=== PATIENT | male | born 1995 | race Caucasian/White ===

== ENCOUNTER 2017-06-05 21:41 | Emergency (ER) | payer MEDICAID ==
[2017-06-05 22:03] VITALS: BP 138/70; PULSE 98; RESP 18; TEMP 98.4
--- NOTE | 2017-06-05 22:25 | ED ---
General Adult HPI - General Chief complaint: ENT Stated complaint: Ear Pain Time Seen by Provider: 06/05/17 22:04 Source: patient, RN notes reviewed Mode of arrival: ambulatory Limitations: no limitations - History of Present Illness Initial comments: Patient 22-year-old male who presents emergency room today with a chief complaint of right-sided ear pain that began a few days ago. This mid to a history of a right ear infection and states he saw ENT was advised that he would need a surgery. She has never follow-up. Patient states his symptoms started just a few days ago and has had drainage coming from the right ear for some pain. Denies any other complaints or symptoms. Patient denies any recent fever, chills, shortness of breath, chest pain, back pain, abdominal pain, nausea or vomiting, numbness or tingling, dysuria or hematuria, constipation or diarrhea, headaches or visual changes, or any other complaints. - Related Data Home Medications Medication Instructions Recorded Confirmed No Known Home Medications [No 01/03/16 01/03/16 Known Home Medications] Previous Rx's Medication Instructions Recorded Amoxicillin 500 mg PO Q8H 10 Days 06/05/17 Ofloxacin 0.3% Otic Soln [Floxin 10 drops RIGHT EAR BID 7 Days 06/05/17 0.3% Otic Soln] Allergies Allergy/AdvReac Type Severity Reaction Status Date / Time No Known Allergies Allergy Verified 06/05/17 21:52 Review of Systems ROS Statement: Those systems with pertinent positive or pertinent negative responses have been documented in the HPI. ROS Other: All systems not noted in ROS Statement are negative. Past Medical History Past Medical History: No Reported History History of Any Multi-Drug Resistant Organisms: None Reported Additional Past Surgical History / Comment(s): tubes in ears Past Psychological History: No Psychological Hx Reported Smoking Status: Current every day smoker Past Alcohol Use History: Occasional Past Drug Use History: None Reported General Exam - General Exam Comments Initial Comments: General: The patient is awake and alert, in no distress, and does not appear acutely ill. Eye: Pupils are equal, round and reactive to light, extra-ocular movements are intact. No nystagmus. There is normal conjunctiva bilaterally. No signs of icterus. Ears, nose, mouth and throat: There are moist mucous membranes and no oral lesions. Patient does have clear and brown drainage coming from the right ear canal. Landmarks are unable to be seen on the right. TM is left is clear. Neck: The neck is supple, there is no tenderness or JVD. Cardiovascular: There is a regular rate and rhythm. No murmur, rub or gallop is appreciated. Respiratory: Lungs are clear to auscultation, respirations are non-labored, breath sounds are equal. No wheezes, stridor, rales, or rhonchi. Musculoskeletal: Normal ROM, no tenderness. Strength 5/5. Sensation intact. Pulses equal bilaterally 2+. Neurological: A&O x 3. CN II-XII intact, There are no obvious motor or sensory deficits. Coordination appears grossly intact. Speech is normal. Skin: Skin is warm and dry and no rashes or lesions are noted. Psychiatric: Cooperative, appropriate mood & affect, normal judgment. Limitations: no limitations Course Vital Signs 06/05/17 21:54 Temperature 98.4 F Pulse Rate 98 Respiratory 18 Rate Blood Pressure 138/70 O2 Sat by Pulse 99 Oximetry Medical Decision Making - Medical Decision Making CT from 2013 reviewed and does show right-sided otitis media with a right-sided mastoiditis. Disposition Clinical Impression: Otitis externa Disposition: HOME SELF-CARE Condition: Good Instructions: Otitis Externa (ED) Additional Instructions: Please follow-up with the ENT doctor over the next 2 days and use antibiotics as prescribed. Please return to emergency room for any other concerns. Prescriptions: Amoxicillin 500 mg PO Q8H 10 Days Ofloxacin 0.3% Otic Soln [Floxin 0.3% Otic Soln] 10 drops RIGHT EAR BID 7 Days Referrals: Isauro Easley DO [Primary Care Provider] - 1-2 days Eric Murphy DO [Doctor of Osteopathic Medicine] - 1-2 days Time of Disposition: 22:24
== END 2017-06-05 22:36 | disposition home or self-care (01) ==
LOC: EC 21:41
DX: H60.91 Unspecified otitis externa, right ear (principal); H66.91 Otitis media, unspecified, right ear; H70.91 Unspecified mastoiditis, right ear; F17.200 Nicotine dependence, unspecified, uncomplicated
CPT/HCPCS: 99282

== ENCOUNTER 2017-06-25 22:55 | Emergency (ER) | payer MEDICAID ==
[2017-06-25 23:01] VITALS: TEMP 97.5
[2017-06-26] MEDS ORDERED: TETRACAINE 0.5% OPHTH (PF) DROPS 4 ML BTL RIGHT EYE STA (00:04)
[2017-06-26] MEDS ORDERED: FLUORESCEIN STRIPS 1 MG STRIP RIGHT EYE ONE (00:04)
--- NOTE | 2017-06-26 00:25 | ED ---
ENT HPI - General Chief complaint: ENT Stated complaint: FB L eye Time Seen by Provider: 06/26/17 00:02 Source: patient Mode of arrival: ambulatory Limitations: no limitations - History of Present Illness Initial comments: Pt presents with pain in left eye. 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 Patient states he's had pain and foreign body sensation in that left eye since the event. Denies vision changes. Patient denies any other injuries or symptoms. Patient states he's had foreign bodies in the eye to previous occasions that had to be removed. Patient states he has an restorative rehab aide that he is seen multiple times in the past. - Related Data Previous Rx's Medication Instructions Recorded Amoxicillin 500 mg PO Q8H 10 Days 06/05/17 Ofloxacin 0.3% Otic Soln [Floxin 10 drops RIGHT EAR BID 7 Days 06/05/17 0.3% Otic Soln] Polymyxin B-Trimethoprim Ophth 1 drops LEFT EYE Q4H #1 bottle 06/26/17 [Polytrim Opthalmic] Allergies Allergy/AdvReac Type Severity Reaction Status Date / Time No Known Allergies Allergy Verified 06/25/17 23:01 Review of Systems ROS Statement: Those systems with pertinent positive or pertinent negative responses have been documented in the HPI. ROS Other: All systems not noted in ROS Statement are negative. Constitutional: Denies: fever, chills Eyes: Reports: eye pain. Denies: eye discharge, vision change ENT: Denies: ear pain, congestion Respiratory: Denies: cough Cardiovascular: Denies: chest pain Endocrine: Denies: fatigue Gastrointestinal: Denies: nausea, vomiting Past Medical History Past Medical History: No Reported History History of Any Multi-Drug Resistant Organisms: None Reported Additional Past Surgical History / Comment(s): tubes in ears Past Psychological History: No Psychological Hx Reported Smoking Status: Current every day smoker Past Alcohol Use History: Occasional Past Drug Use History: None Reported General Exam - General Exam Comments Initial Comments: sitting up on side of bed, no acute distress. Conversing normally calm, pleasant, making jokes, smiling. Well appearing. Limitations: no limitations General appearance: alert, in no apparent distress Head exam: Present: atraumatic, normocephalic Eye exam: Present: PERRL, EOMI, other (sclera white, conjunctiva clear. Left eyelids everted, no foreign body visualized under microscope. Increased fluorescein uptake in linear fashion along lower left eye below the iris. No ulcer seen. Demond test negative. No foreign bodies visualized. Pupils equal round and reactive to light bilaterally. Vision grossly intact in both eyes.). Absent: scleral icterus, conjunctival injection, periorbital swelling, periorbital tenderness Pupils: Present: normal accommodation ENT exam: Present: normal exam, normal external ear exam Respiratory exam: Present: normal lung sounds bilaterally. Absent: respiratory distress Cardiovascular Exam: Present: regular rate, normal rhythm GI/Abdominal exam: Absent: distended Extremities exam: Present: normal inspection Neurological exam: Present: alert, oriented X3 Psychiatric exam: Present: normal affect, normal mood Skin exam: Present: warm, dry, intact, normal color. Absent: rash, erythema, abrasion Course Vital Signs 06/25/17 06/26/17 22:57 00:41 Temperature 97.5 F L Pulse Rate 88 76 Respiratory 16 18 Rate Blood Pressure 142/75 153/76 O2 Sat by Pulse 99 97 Oximetry Medical Decision Making - Medical Decision Making no foreign bodies visualized on exam. Fluoriceine uptake consistent with corneal abrasion. Prescription for antibiotic eyedrops given. Patient states he has an restorative rehab aide, agrees to call them in the morning to schedule follow -up within 2 days. Return to ED if new or worsening symptoms. Patient understands and agrees. Disposition Clinical Impression: Corneal abrasion Disposition: HOME SELF-CARE Instructions: Corneal Abrasion (ED) Additional Instructions: make appointment with your restorative rehab aide in 1-2 days. Prescriptions: Polymyxin B-Trimethoprim Ophth [Polytrim Opthalmic] 1 drops LEFT EYE Q4H #1 bottle Referrals: Isauro Easley DO [Primary Care Provider] - 1-2 days
[2017-06-26 00:42] VITALS: BP 153/76; PULSE 76; RESP 18
== END 2017-06-26 00:42 | disposition home or self-care (01) ==
LOC: EC 22:55
DX: S05.02XA Injury of conjunctiva and corneal abrasion without foreign body, left eye, initial encounter (principal); W45.8XXA Other foreign body or object entering through skin, initial encounter; F17.200 Nicotine dependence, unspecified, uncomplicated; Y93.89 Activity, other specified
CPT/HCPCS: 99283

== ENCOUNTER 2018-07-23 03:07 | Emergency (ER) | payer MEDICAID ==
[2018-07-23 03:16] VITALS: BP 157/100; PULSE 78; RESP 18; TEMP 98.1
--- NOTE | 2018-07-23 03:55 | ED ---
ENT HPI - General Chief complaint: ENT Stated complaint: ear pain Time Seen by Provider: 07/23/18 03:18 Source: patient, RN notes reviewed, old records reviewed Mode of arrival: ambulatory Limitations: no limitations - History of Present Illness Initial comments: Patient is a 23 year old male with a hsitory of chronic R ear infections, and chronic mastoiditis. Patient reports that he does not follow up with ENT, due to needing a surgery that he has put off since 2013. Patient reports increased drainage to ear, after using q tip. Patient reports that he has perforated TM for years, and cannot use ear drops. Patient states that he has no fevers, chillls, denies headache. He left work early due to ear pain. - Related Data Home Medications Medication Instructions Recorded Confirmed Naproxen Sodium [Aleve] 1,100 mg PO ONCE 10/11/17 10/11/17 Previous Rx's Medication Instructions Recorded Amoxic-Pot Clav 875-125Mg 1 tab PO Q12HR #20 tablet 07/23/18 [Augmentin 875-125] Allergies Allergy/AdvReac Type Severity Reaction Status Date / Time No Known Allergies Allergy Verified 07/23/18 03:15 Review of Systems ROS Statement: Those systems with pertinent positive or pertinent negative responses have been documented in the HPI. ROS Other: All systems not noted in ROS Statement are negative. Past Medical History Past Medical History: No Reported History History of Any Multi-Drug Resistant Organisms: None Reported Additional Past Surgical History / Comment(s): tubes in ears Past Psychological History: Depression Smoking Status: Current every day smoker Past Alcohol Use History: None Reported Past Drug Use History: None Reported General Exam - General Exam Comments Initial Comments: This is a 23 year old male, no acute distress. Limitations: no limitations General appearance: alert, in no apparent distress Head exam: Present: atraumatic, normocephalic, normal inspection Eye exam: Present: normal appearance, PERRL, EOMI. Absent: scleral icterus, conjunctival injection, periorbital swelling ENT exam: Present: normal exam, mucous membranes moist. Absent: TM's normal bilaterally (R TM erythematous, with slight drainage. No bloody drainage. Patient is tender preauriclar area. ) Neck exam: Present: normal inspection. Absent: tenderness, meningismus, lymphadenopathy Respiratory exam: Present: normal lung sounds bilaterally. Absent: respiratory distress, wheezes, rales, rhonchi, stridor Cardiovascular Exam: Present: regular rate, normal rhythm, normal heart sounds. Absent: systolic murmur, diastolic murmur, rubs, gallop, clicks Extremities exam: Present: normal inspection, full ROM, normal capillary refill. Absent: tenderness, pedal edema, joint swelling, calf tenderness Psychiatric exam: Present: normal affect, normal mood Skin exam: Present: warm, dry, intact, normal color. Absent: rash Course Vital Signs 07/23/18 03:12 Temperature 98.1 F Pulse Rate 78 Respiratory 18 Rate Blood Pressure 157/100 O2 Sat by Pulse 99 Oximetry Medical Decision Making - Medical Decision Making 23 year old male with chronic R ear infections, presents today with drainage after using q tip. Patient has erythematous bulging TM. Slight drainage noted. No fevers, no meningeal signs. Discussed placing patient on Amoxicllin. Discussed he needs to follow up with ENT. Discussed return parameters. Disposition Clinical Impression: Recurrent otitis media Disposition: HOME SELF-CARE Condition: Good Instructions: Earache (ED) Additional Instructions: Follow-up with primary care physician. Return to emergency department if any alarming signs or symptoms occur. Prescriptions: Amoxic-Pot Clav 875-125Mg [Augmentin 875-125] 1 tab PO Q12HR #20 tablet Is patient prescribed a controlled substance at d/c from ED?: No Referrals: Isauro Easley DO [Primary Care Provider] - 1-2 days Sushil Emerson MD [STAFF PHYSICIAN] - 1-2 days Time of Disposition: 03:54
== END 2018-07-23 04:20 | disposition home or self-care (01) ==
LOC: EC 03:07
DX: H66.91 Otitis media, unspecified, right ear (principal); F17.200 Nicotine dependence, unspecified, uncomplicated
CPT/HCPCS: 99283

== ENCOUNTER 2022-03-18 01:01 | Emergency (ER) | payer BC, MEDICAID ==
[2022-03-18 01:15] VITALS: BP 138/84; PULSE 70; RESP 16; TEMP 98.2
--- NOTE | 2022-03-18 01:22 | ED ---
Wound/Laceration HPI - General Chief Complaint: Wound/Laceration Stated Complaint: Finger injury Time Seen by Provider: 03/18/22 01:20 Source: patient, RN notes reviewed Mode of arrival: ambulatory Limitations: no limitations - History of Present Illness Initial Comments: This is a pleasant, 26-year-old [id number] male who presents to the emergency department after sustaining a laceration to his left index finger when he was working with a piece of metal at home. This happened about 3 PM. Patient states she shaved off a portion of his skin and has been bleeding off and on since. Patient unsure of his last tetanus. Patient's was concerned because it had bled through the initial bandage. Applied. Patient denying any other injuries. No immunosuppression. No health problems. No distal paresthesias. No headache, no fever or chills, no changes in vision or hearing, no sore throat or difficulty with speech, no neck pain, no chest pain or shortness of breath, no abdominal pain, no nausea or vomiting, no changes in urination or bowel movements, no numbness or tingling, no extremity pain, no skin rashes or lesions. Onset/Timin -: hour(s) - Related Data Home Medications Medication Instructions Recorded Confirmed Naproxen Sodium [Aleve] 1,100 mg PO ONCE 10/11/17 10/11/17 Previous Rx's Medication Instructions Recorded Amoxic-Pot Clav 875-125Mg 1 tab PO Q12HR #20 tablet 07/23/18 [Augmentin 875-125] Allergies Allergy/AdvReac Type Severity Reaction Status Date / Time No Known Allergies Allergy Verified 07/23/18 03:15 Review of Systems ROS Statement: Those systems with pertinent positive or pertinent negative responses have been documented in the HPI. ROS Other: All systems not noted in ROS Statement are negative. Past Medical History Past Medical History: No Reported History History of Any Multi-Drug Resistant Organisms: None Reported Additional Past Surgical History / Comment(s): tubes in ears Past Psychological History: Depression Past Alcohol Use History: None Reported Past Drug Use History: None Reported General Exam - General Exam Comments Initial Comments: Nontoxic appearing male in no acute distress. Limitations: no limitations Head exam: Present: atraumatic, normocephalic, normal inspection Eye exam: Present: normal appearance, EOMI Neck exam: Present: normal inspection Respiratory exam: Absent: respiratory distress Cardiovascular Exam: Present: regular rate, normal rhythm, normal heart sounds. Absent: systolic murmur, diastolic murmur, rubs, gallop, clicks Extremities exam: Present: full ROM, normal capillary refill, other (Patient has a superficial skin avulsion to the distal aspect of the left index finger. No contamination. No foreign body. No nail plate involvement.). Absent: tenderness Left Neuro motor exam: Present: wrist extension intact, thumb opposition intact, thumb IP flexion intact, thumb adduction intact, fingers 2-5 abduction intact Vascular: Present: vascular compromise, normal capillary refill. Absent: Pallo, pulse deficit radial art, pulse deficit ulnar art Back exam: Present: normal inspection Neurological exam: Present: alert, oriented X3, CN II-XII intact. Absent: motor sensory deficit Psychiatric exam: Present: normal affect, normal mood Skin exam: Present: warm, dry, normal color. Absent: rash, cyanosis, diaphoretic Course Vital Signs 03/18/22 01:12 Temperature 98.2 F Pulse Rate 70 Respiratory 16 Rate Blood Pressure 138/84 O2 Sat by Pulse 98 Oximetry Medical Decision Making - Medical Decision Making Superficial skin avulsion, left index finger. Patient counseled on signs and symptoms of infection. Counseled on wound care. Patient was told to return to the ER for any signs or symptoms worsen. Told to return immediately if any other problems arise. All questions answered. T reatment plan discussed. Patient in agreement Every effort has been made to ensure accuracy of this dictation. However, due to the limitations of electronic medical records and dictation devices, errors in charting still occur. Computer Help [employer] Specialist Dr. Carrillo Disposition Clinical Impression: Skin avulsion, Tetanus toxoid inoculation Disposition: HOME SELF-CARE Condition: Good Instructions (If sedation given, give patient instructions): Skin Avulsion (ED) Additional Instructions: Follow-up with your regular physician as directed. Return to the ER immediately if any symptoms worsen, new symptoms arise, or any other problems develop. Is patient prescribed a controlled substance at d/c from ED?: No Referrals: None,Stated [Primary Care Provider] - 1-2 days Time of Disposition: 02:07
[2022-03-18] MEDS ORDERED: GELATIN SPONGE,ABSORB (SMALL) 1 EACH SPONGE TOPICAL STA (01:35)
[2022-03-18] MEDS ORDERED: DIPH,PERTUS(ACELL)TETVAC-LF 0.5 ML VIAL IM ONE (01:39)
== END 2022-03-18 02:15 | disposition home or self-care (01) ==
LOC: EC 01:01
DX: S61.201A Unspecified open wound of left index finger without damage to nail, initial encounter (principal); Z23 Encounter for immunization; W45.8XXA Other foreign body or object entering through skin, initial encounter
CPT/HCPCS: 90715

== ENCOUNTER 2024-05-13 17:53 | Emergency (ER) | payer BC, OTHER ==
[2024-05-13 18:05] VITALS: RESP 18
--- NOTE | 2024-05-13 18:21 | ED ---
Abdominal Pain HPI - General Source: patient Mode of arrival: ambulatory Limitations: no limitations <Bety Davenport - Last Filed: 05/13/24 18:20> - General Source: patient, RN notes reviewed Mode of arrival: ambulatory Limitations: no limitations - History of Present Illness MD Complaint: abdominal pain <Kelsea Mejia - Last Filed: 05/13/24 22:54> - General Chief Complaint: Abdominal Pain Stated Complaint: [facility]-Groin pain Time Seen by Provider: 05/13/24 18:20 - History of Present Illness Initial Comments: 29-year-old male with chief complaint of left groin pain. When he was at work he was lifting something heavy and then felt a pop in the left groin. Pain is radiating into the abdomen and down the leg. No vomiting (Bety Davenport) This is a 29-year-old male who presents to the emergency department for left groin pain. He was lifting a heavy steel beam at work and he felt something pop in the left groin region. He has pain now radiating down the leg and up into the abdomen. Denies any nausea or vomiting. Believes that he may have strained something. Denies any history of similar problems in the past. He has not noticed any bulges in this area. (Kelsea Mejia) - Related Data Home Medications Medication Instructions Recorded Confirmed Naproxen Sodium [Aleve] 1,100 mg PO ONCE 10/11/17 10/11/17 Previous Rx's Medication Instructions Recorded Amoxic-Pot Clav 875-125Mg 1 tab PO Q12HR #20 tablet 07/23/18 [Augmentin 875-125] Allergies Allergy/AdvReac Type Severity Reaction Status Date / Time No Known Allergies Allergy Verified 05/13/24 18:05 Review of Systems ROS Other: All systems not noted in ROS Statement are negative. <Bety Davenport - Last Filed: 05/13/24 18:20> ROS Other: All systems not noted in ROS Statement are negative. <Kelsea Mejia - Last Filed: 05/13/24 22:54> ROS Statement: Those systems with pertinent positive or pertinent negative responses have been documented in the HPI. Past Medical History Past Medical History: No Reported History History of Any Multi-Drug Resistant Organisms: None Reported Additional Past Surgical History / Comment(s): tubes in ears Past Psychological History: Depression Smoking Status: Current every day smoker Past Alcohol Use History: Occasional Past Drug Use History: None Reported <Bety Davenport - Last Filed: 05/13/24 18:20> General Exam Limitations: no limitations <Bety Davenport - Last Filed: 05/13/24 18:20> Limitations: no limitations General appearance: alert, in no apparent distress Head exam: Present: atraumatic, normocephalic, normal inspection Respiratory exam: Present: normal lung sounds bilaterally. Absent: respiratory distress, wheezes, rales, rhonchi, stridor Cardiovascular Exam: Present: regular rate, normal rhythm, normal heart sounds. Absent: systolic murmur, diastolic murmur, rubs, gallop, clicks GI/Abdominal exam: Present: soft, normal bowel sounds. Absent: distended, tenderness, guarding, rebound, rigid, hernia Neurological exam: Present: alert, oriented X3, CN II-XII intact Psychiatric exam: Present: normal affect, normal mood Skin exam: Present: warm, dry, intact, normal color. Absent: rash <Kelsea Mejia - Last Filed: 05/13/24 22:54> - General Exam Comments Initial Comments: Visual Physical Exam Vital signs reviewed General: Well-appearing, nontoxic, no acute distress. Head: Normocephalic, atraumatic Eyes: PERRLA, EOMI ENT: Airway patent Chest: Nonlabored breathing Skin: No visual rash, normal skin tone Neuro: Alert and oriented 3 Musculoskeletal: No gross abnormalities (Bety Davenport) Course Vital Signs 05/13/24 05/13/24 18:02 22:28 Temperature 97.9 F 98.1 F Pulse Rate 81 88 Respiratory 18 18 Rate Blood Pressure 123/74 125/85 O2 Sat by Pulse 98 98 Oximetry Medical Decision Making <Bety Davenport - Last Filed: 05/13/24 18:20> - Lab Data Result diagrams: 05/13/24 20:27 05/13/24 20:27 - Radiology Data Radiology results: report reviewed, image reviewed <Kelsea Mejia - Last Filed: 05/13/24 22:54> - Medical Decision Making I performed the quick note portion of this visit, electronically signed Bety Davenport PA-C (Bety Davenport) This is a 29 year old male who presents to the emergency department for abdominal pain. Was pt. sent in by a medical professional or institution? @ -[facility] Did you speak to anyone other than the patient for history? @ -No Did you review nursing and triage notes? @ -Yes, and I agree, it is accurate with regards to the patient's symptoms. Were old charts reviewed? @ -No Differential Diagnosis? @ -Differential Abdominal Pain Men: Appendicitis, cholecystitis, diverticulosis, ischemic bowel, pancreatitis, hepatitis, UTI, gastroenteritis, AAA, incarcerated hernia, bowel obstruction, constipation, inflammatory bowel, hepatitis, peptic ulcer disease, splenic infarction, perforated viscus, testicular torsion, this is not meant to be an all-inclusive list EKG interpreted by me (3pts min.)? @ -Not obtained X-rays interpreted by me (1pt min.)? @ -Not obtained CT interpreted by me (1pt min.)? @ -CT scan of the abdomen and pelvis obtained. My interpretation identifies no hernias. U/S interpreted by me (1pt. min.)? @ -Not obtained What testing was considered but not performed? (CT, X-rays, U/S, labs)? Why? @ -None What meds were considered but not given? Why? @ -None Did you discuss the management of the patient with other professionals? @ -No Did you reconcile home meds? @ -No Was smoking cessation discussed for >3mins.? @ -I discussed smoking cessation for greater than 3 minutes. The risk of smoking were discussed with the patient including but not limited to risks of cancer, stroke, coronary artery disease and COPD. Also discussed with patient were multiple methods of quitting smoking. Lastly we discussed the financial cost of smoking. Was critical care preformed (if so, how long)? @ -No Were there social determinants of health that impacted care today? How? (Homelessness, low income, unemployed, alcoholism, drug addiction, transportation, low edu. Level, literacy, decrease access to med. care, longterm, rehab)? @ -No Was there de-escalation of care discussed even if they declined? (Discuss DNR or withdrawal of care, Hospice)? @ -No What co-morbidities impacted this encounter? (DM, HTN, Smoking, COPD, CAD, Cancer, CVA, Hep., AIDS, mental health diagnosis, sleep apnea, morbid obesity)? @ -Smoking Was patient admitted / discharged? @ -Discharged. Lab work unremarkable. CT scan of the abdomen and pelvis did not identify anything to account for the patient's left groin pain. There was noted to be minimal prominence of the mid appendix that may be present. However, appendicitis does not fit the patient's history or examination. Finding was reviewed with the patient and he was given strict return parameters regarding this finding. Advised he otherwise alternate with ibuprofen and Tylenol as needed for discomfort and follow-up with his PCP. Patient discharged home in stable condition. Case discussed with ED attending Dr. Denson. Return precautions reviewed in depth, the patient is instructed to return to the emergency department with any new, worsening, or concerning symptoms. Patient verbalized understanding. Undiagnosed new problem with uncertain prognosis? @ -None Drug Therapy requiring intensive monitoring for toxicity (Heparin, Nitro, Insulin, Cardizem)? @ -None Were any procedures done? @ -None Diagnosis/symptom? @ -Left groin strain Acute, or Chronic, or Acute on Chronic? @ -Acute Uncomplicated (without systemic symptoms) or Complicated (systemic symptoms)? @ -Uncomplicated Side effects of treatment? @ -None Exacerbation, Progression, or Severe Exacerbation] @ -Not applicable Poses a threat to life or bodily function? @ -No (Kelsea Mejia) - Lab Data Lab Results 05/13/24 05/13/24 05/13/24 Range/Units 20:27 20:27 20:27 WBC 9.0 (3.8-10.6) k/uL RBC 5.00 (4.30-5.90) m/uL Hgb 14.6 (13.0-17.5) gm/dL Hct 43.5 (39.0-53.0) % MCV 87.1 (80.0-100.0) fL MCH 29.2 (25.0-35.0) pg MCHC 33.5 (31.0-37.0) g/dL RDW 13.2 (11.5-15.5) % Plt Count 261 (150-450) k/uL MPV 7.9 Neutrophils % 64 % Lymphocytes % 28 % Monocytes % 5 % Eosinophils % 1 % Basophils % 1 % Neutrophils # 5.7 (1.3-7.7) k/uL Lymphocytes # 2.5 (1.0-4.8) k/uL Monocytes # 0.5 (0-1.0) k/uL Eosinophils # 0.1 (0-0.7) k/uL Basophils # 0.1 (0-0.2) k/uL Sodium 141 (137-145) mmol/L Potassium 3.8 (3.5-5.1) mmol/L Chloride 107 (98-107) mmol/L Carbon Dioxide 28 (22-30) mmol/L Anion Gap 6 mmol/L BUN 13 (9-20) mg/dL Creatinine 0.93 (0.66-1.25) mg/dL Est GFR (CKD-EPI)AfAm >90 (>60 ml/min/1.73 sqM) Est GFR (CKD-EPI)NonAf >90 (>60 ml/min/1.73 sqM) Glucose 92 (74-99) mg/dL Plasma Lactic Acid Jerrod 1.7 (0.7-2.0) mmol/L Calcium 9.3 (8.4-10.2) mg/dL Total Bilirubin 0.6 (0.2-1.3) mg/dL AST 19 (17-59) U/L ALT 24 (4-49) U/L Alkaline Phosphatase 72 (38-126) U/L Total Protein 7.2 (6.3-8.2) g/dL Albumin 4.4 (3.5-5.0) g/dL Disposition <Bety Davenport - Last Filed: 05/13/24 18:20> Is patient prescribed a controlled substance at d/c from ED?: No Time of Disposition: 21:57 <Kelsea Mejia - Last Filed: 05/13/24 22:54> Clinical Impression: Nicotine dependence, Strain of left groin Disposition: HOME SELF-CARE Instructions (If sedation given, give patient instructions): Groin Strain (ED) Additional Instructions: Return to the emergency department with any new, worsening, or concerning symptoms. Alternate with ibuprofen and Tylenol as needed for pain relief. Fol low up with your primary care provider in 1-2 days. Referrals: None,Stated [Primary Care Provider] - 1-2 days
[2024-05-13] MEDS ORDERED: KETOROLAC 15 MG/ML 1 ML VIAL IVP STA (19:51)
[2024-05-13 20:35] LABS: Basophils # (A) 0.1 k/uL (0-0.2); Basophils % (A) 1 %; Eosinophils # (A) 0.1 k/uL (0-0.7); Eosinophils % (A) 1 %; HCT 43.5 % (39.0-53.0); HGB 14.6 gm/dL (13.0-17.5); Lymphocytes # (A) 2.5 k/uL (1.0-4.8); Lymphocytes % (A) 28 %; MCH 29.2 pg (25.0-35.0); MCHC 33.5 g/dL (31.0-37.0); MCV 87.1 fL (80.0-100.0); Mean Platelet Volume 7.9; Monocytes # (A) 0.5 k/uL (0-1.0); Monocytes % (A) 5 %; Neutrophils # (A) 5.7 k/uL (1.3-7.7); Neutrophils % (A) 64 %; Platelet Count 261 k/uL (150-450); RDW 13.2 % (11.5-15.5)
[2024-05-13 20:48] LABS: ALT 24 U/L (4-49); AST 19 U/L (17-59); African American GFR (CKD) >90 (>60 ml/min/1.73 sqM); Albumin 4.4 g/dL (3.5-5.0); Alkaline Phosphatase 72 U/L (38-126); Anion Gap 6 mmol/L; Blood Urea Nitrogen 13 mg/dL (9-20); Calcium 9.3 mg/dL (8.4-10.2); Carbon Dioxide 28 mmol/L (22-30); Chloride 107 mmol/L (98-107); Glucose 92 mg/dL (74-99); Non-African American GFR(CKD) >90 (>60 ml/min/1.73 sqM); Potassium 3.8 mmol/L (3.5-5.1); Sodium 141 mmol/L (137-145); Total Bilirubin 0.6 mg/dL (0.2-1.3); Total Protein 7.2 g/dL (6.3-8.2)
--- NOTE | 2024-05-13 21:18 | CT ---
EXAMINATION TYPE: CT abdomen pelvis w con DATE OF EXAM: 05/13/2024 COMPARISON: None INDICATION: L groin pain while doing heavy lifting at work. states he felt a pop, pain is radiating i nto stomach and leg/groin. DLP: 1309.1 mGycm, Automated exposure control for dose reduction was used. CONTRAST: 100 ml mL of Isovue 300. Study performed without Oral Contrast TECHNIQUE: Axial images were obtained from above the diaphragm to the pubic rami in the axial plane a t 5 mm thick sections. Reconstructed images are reviewed on the computer in the coronal plane. FINDINGS: Limited CT sections are obtained the lung bases. The lung bases are clear. CT ABDOMEN: Liver: Normal Spleen: Normal Pancreas: Normal Adrenal glands: The adrenal glands are normal. Gallbladder: Normal Kidneys: No masses are evident. No hydronephrosis is present. No cysts are present. Delayed images were obtained through the kidneys, which remain unremarkable. Aorta: Vascular calcification is within the aorta. Inferior vena cava: Normal. CT PELVIS: Left inguinal region appears normal. No hernia is identified. Couple of lymph nodes are pr esent. A large left inguinal lymph node with a large fatty hilum is present. This does not appear to have a thickened cortex Loops of bowel within the abdomen and pelvis are normal. Diverticulosis present. No acute diverti culitis of the sigmoid colon. Appendix: The appendix may have minimal dilatation of 0.9 cm. Normal less than 0.7 cm. No adjacent in flammatory changes. No appendicolith is identified. Clinical management of any suspected appendicitis . Urinary bladder: Decompressed limiting evaluation. Genitourinary structures: Prostate is normal Osseous structures: No suspicious lytic or sclerotic lesions. Joint spaces are preserved. Vertebral b moshe heights are. Disc heights are preserved. IMPRESSION: 1. No suspicious abnormality to account for patient left groin pain symptoms. 2. Minimal prominence of the mid appendix may be present. Clinical management of any suspected append icitis. 3. Mild diverticulosis without acute diverticulitis.
[2024-05-13 22:29] VITALS: BP 125/85; PULSE 88; TEMP 98.1
== END 2024-05-13 22:29 | disposition home or self-care (01) ==
LOC: EC 17:53
CPT/HCPCS: 36415; 74177; 80053; 83605; 85025; 99284